=== PATIENT | male | born 1950 | race Caucasian/White ===

== ENCOUNTER 2016-12-11 18:30 | Inpatient (IN) | payer MEDICARE ==
[~2016-12-11] VITALS: Ht 182.9 cm; Wt 136.1 kg
[2016-12-11] MEDS ORDERED: GLUCOPHAGE500 MG PO (18:48)
--- NOTE | 2016-12-11 22:17 | NUR ---
12/11/16 1902 Dawna Smith 2203 PATIENT ARRIVES TO PACU AWAKE, RESP EVEN AND UNLABORED, AUDIBLE WHEEZING, IMPROVES WITH COUGH, ON ROOM AIR.
--- NOTE | 2016-12-11 22:50 | NUR ---
66YR OLD MAN ADMITTED TO ROOM 115 FROM RECOVERY. PT IS ALREADY ON BED. ALERT, ORIENTED, IN GOOD SPIRITS. DENIES ANY PAIN OR FEELING WAIST DOWN YET. L LEG ELEVATED ON PILLOW WITH ICE. TOES ARE PINK AND WARM TO TOUCH. DRSG IS CDI TO L LOWER LEG. CARR CATH PATENT/SECURE WITH LIGHT YELLOW URINE. IVF PATENT. ORIENTED TO ROOM AND CALL LIGHT. DENEIS FURTHER NEEDS.
--- NOTE | 2016-12-12 00:36 | NUR ---
IN TO CHECK ON PT, VITALS OBTAINED. PT DENIES PAIN AND NAUSEA. DRSG C/D/I. PULSE OX IN PLACE. SCD AND TEDS IN PLACE. NO FURTHER NEEDS NOTED. WATER AT BEDSIDE. CALL LIGHT WITH IN REACH.
--- NOTE | 2016-12-12 01:41 | NUR ---
IN TO CHECK ON PT, PT AWAKE WATCHING TV. DENIES PAIN OR NAUSEA. FRESH WATER GIVEN. PT STATES HE IS ABLE TO SLEEP FOR A FEW MINUTES AT A TIME THEN WAKES. VITALS OBTAINED. BYRON C/D/I. PULSE OX, O2 AND CARR IN PLACE. CALL LIGHT WITH IN REACH.
--- NOTE | 2016-12-12 01:57 | NUR ---
PT CALLED STATING HIS "RIGHT FOOT FEELS LIKE IT IS ASLEEP." IN TO ASSESS PT. CMS INTACT. DISCUSSED SYMPTOMS OF SENSATION RETURNING AFTER SPINAL. PT ASKED ABOUT ITCHING. STATES HIS ITCHING IS MINIMAL AND HAS ACTUALLY IMPROVED SINCE COMING TO THE FLOOR. OFFERED MEDICATION FOR ITCHING, PT DECLINED. ADVISED TO CALL IF ITCHING INCREASES. PT UNDERSTANDS. CALL LIGHT WITH IN REACH.
--- NOTE | 2016-12-12 04:37 | NUR ---
PT ADMITTED TO FLOOR AT 2250 AFTER ORIF OF THE L ANKLE. PT HAS BEEN AWAKE FOR MOST OF THE SHIFT. AAO X3, PLEASANT. SPINAL ANESTHESIA ADMINISTERED IN OR. DENIES PAIN OR NAUSEA. DRSG C/D/I. CMS INTACT. PT TOLERATING FLUIDS AND JELLO. CARR IN PLACE.
--- NOTE | 2016-12-12 08:22 | NUR ---
PT SITTING UP IN BED. FAMILY VISITING AT BEDSIDE. LEASE PURCHASE DRIVER OBTAINED FSBS. GLUCOSE 228. NO SLIDING SCALE ORDERED YET. HOSPITALIST CONSULT ORDERED. WILL GIVE SLIDING SCALE INSULIN WHEN ORDERED.
--- NOTE | 2016-12-12 09:28 | NUR ---
SALINE LOCKED PATIENT. PAIN 05/04. ATE 100% BREAKFAST.
--- NOTE | 2016-12-12 13:05 | EKG ---
[facility] [address] [place] [address] Signed Normal sinus rhythm Right bundle branch block Abnormal ECG No previous ECGs available Confirmed by MACARENA STOVER MD ([id number]) on 12/12/2016 1:05:31 PM Electronically Signed By: MACARENA STOVER MD 12/12/16 1305 PATIENT NAME: DURAN MAURO Electrocardiogram DATE OF : 48 PHYSICIAN: MACARENA STOVER MD REPORT #: [id number] REPORT IS CONFIDENTIAL AND NOT TO BE RELEASED WITHOUT AUTHORIZATION
--- NOTE | 2016-12-12 17:53 | NUR ---
worked with PT TODAY. SBA WITH FWW. USES URINAL. ROOM AIR. DOMINGUEZ DRESSING INTACT. CMS GOOD. ADA DIET. NO COVERAGE GIVEN FOR SLIDING SCALE D/T METFORMIN BID. MAY NEED TO REINFORCE CALLING WHEN HE NEEDS THE RESTROOM.
--- NOTE | 2016-12-12 19:20 | NUR ---
REPORT RECV'D, PT SLEEPING. AWAKENS EASILY TO VOICE. DENIES PAIN AT THIS TIME. DRSG DRY AND INTACT. DIME SIZED SPOT OF BLOOD NOTED ON THE HEEL OF THE L FOOT. DRSG REINFORCED. PT USING URINAL AT BEDSIDE. NO FURTHER NEEDS AT THIS TIME. CALL LIGHT WITH IN REACH.
--- NOTE | 2016-12-12 20:50 | NUR ---
IN TO CHECK ON PT. PT C/O OF GAS PAIN AND NAUSEA. PT WRETCHING. PRN ZOFRAN GIVEN. VITALS OBTAINED. PT ASSESSED. DRSG REINFORCED WITH ABD PAD AND COBAND. PT REPOSITION TO SIDE FOR COMEFORT. STATES HE STOMACH IS FEELING BETTER AFTER MEDICATION. RATES PAIN A 1-2/10. URINAL AT BEDSIDE. STRESSED TO PT TO CALL WHEN NEEDING TO STAND TO USE THE URINAL, PT STATES HE UNDERSTANDS. SCD AND TEDS IN PLACE. NO FURTHER NEEDS AT THIS TIME. CALL LIGHT WITH IN REACH.
--- NOTE | 2016-12-12 22:30 | NUR ---
IN TO CHECK ON PT, PT SLEEPING. PT STATES THAT HE IS FEELING BETTER, DENIES NAUSEA. STATES " I HAVE BEEN ABLE TO GET RID OF SOME OF THAT GAS." URINAL EMPTIED. NO FURTHER NEEDS AT THIS TIME. SCD AND TEDS IN PLACE. CALL LIGHT WITH IN REACH.
--- NOTE | 2016-12-13 00:39 | NUR ---
IN TO CHECK ON PT, LIGHTS AND TV ON. PT SLEEPING. NO APPARENT DISTRESS NOTED. SCDS AND TEDS IN PLACE. CALL LIGHT WITH IN REACH.
--- NOTE | 2016-12-13 02:44 | NUR ---
IN TO CHECK ON PT, PT APPEARS TO BE SLEEPING. RR EVEN AND UNLABORED. PULSE OX IN PLACE. URINAL AT BEDSIDE. CALL LIGHT WITH IN REACH.
--- NOTE | 2016-12-13 03:45 | NUR ---
PT CALLED, UP TO BATHROOM. 2 PERSON STANDBY ASSIST WITH FWW. TOLERATED WELL. BM NOTED. PT ASSISTED BACK TO BED. RATES PAIN A 08/02. PRN MEDICATION GIVEN. SCD AND TEDS IN PLACE. DRSG C/D/I. FRESH WATER GIVEN. CALL LIGHT WITH IN REACH.
--- NOTE | 2016-12-13 04:21 | NUR ---
PT HAS RESTED WELL THROUGH OUT THE SHIFT. C/O OF GAS PAIN AND NAUSEA AT BEGINNING OF SHIFT. ZOFAN GIVE. NAUSEA RESOLVED. PASSING GAS AND UP TO BATHROOM, BM NOTED. NORCO GIVEN X1 FOR 4/10 PAIN. DRSG REINFORCED DUE TO DIME SIZED AREA OF DRAINAGE. SHADOWING ALSO NOTED IN THE SAME AREA. SCDS AND TEDS IN PLACE. PT AAO X3 AND PLEASANT.
--- NOTE | 2016-12-13 07:43 | NUR ---
report received from Kishore SPEARS at bedside. pt awake sitting up in bed. pt up to bathroom now. having flatulence. son at bedside. Charley GUZMÁN setting up chair for patient to sit in for breakfast. Pain well controlled now.
--- NOTE | 2016-12-13 07:45 | NUR ---
PATIENT UP TO BATHROOM. BED BATH AND ORAL CARE DONE BY PATIENT. LINENS CHANGED.
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
--- NOTE | 2016-12-13 10:37 | NUR ---
PATIENT UP IN BED ASKED FOR PAIN MEDS. CALL BUTTON IN REACH. FRESH ICE WATER GIVEN.
--- NOTE | 2016-12-13 10:47 | NUR ---
nitro patch applied to right chest. pt and anxiety elevated. called to see if esophagram could be expedited. unable to get pt in to exam sooner.
[2016-12-13] MEDS ORDERED: VENTOLIN HFA18 GM INH (10:59)
[2016-12-13] MEDS ORDERED: GLIPIZIDE5 MG PO (11:00)
[2016-12-13] MEDS ORDERED: LOSARTAN POTAS100 MG PO (11:01)
[2016-12-13] MEDS ORDERED: AMLODIPINE BESY10 MG PO (11:01)
[2016-12-13] MEDS ORDERED: ATORVASTATIN CA80 MG PO (11:02)
[2016-12-13] MEDS ORDERED: METOPROLOL TART50 MG PO (11:03)
[2016-12-13] MEDS ORDERED: METFORMIN HCL1000 MG PO (11:04)
[2016-12-13] MEDS ORDERED: ALEVE220 MG PO (11:06)
--- NOTE | 2016-12-13 17:16 | NUR ---
ODETTE X2 TODAY. SRAVANI X1. WORKED WITH PT X2. TOLERATED WELL. EATING WELL. ACCU CHECKS DISCONTINUED. METFORMIN BID. CALLS APPROPRIATELY. HOME TUESDAY.
--- NOTE | 2016-12-13 18:27 | NUR ---
PATIENT SITTING UP IN BED. STATES HIS LAST PAIN MEDS ONLY MADE HIM LIGHT HEADED BUT HIS PAIN IS AT A 6. FRESH ICE WATER GIVEN. ICE PACKS ON LEFT ANKLE. NO OTHER NEEDS AT THIS TIME. CALL BUTTON IN REACH.
--- NOTE | 2016-12-13 21:00 | NUR ---
PT IS IN GOOD SPIRITS WATCHING TV, L FOOT ELEVATED ON PILLOW WITH ICE PACKS, REPORTED GOOD CMS TO TOES. DRSG IS CDI. RATES PAIN 2/10. STATES HE IS COMFORTABLE. CALL LIGHT IN EASY REACH.
--- NOTE | 2016-12-14 01:10 | NUR ---
PT AWAKE, AMB W FWW TO BATHROOM TO VOID, DOING VERY WELL WITH TTWB TO L LEG. REQUESTED PAIN MEDICATION AT THIS TIME FOR L LEG ACHING, OXYCODONE GIVEN, ASSISTED WITH REPOSITIONING FOR COMFORT, ELEVATED WITH ICE TO ANKLE. CALL LIGHT IN EASY REACH.
--- NOTE | 2016-12-14 03:57 | NUR ---
PT IS ASLEEP, RESP EVEN AND UNLABORED. CALL LIGHT IN EASY REACH.
--- NOTE | 2016-12-14 07:32 | NUR ---
Bedside report received from Batsheva SPEARS. Pt sleeping in bed. shift production associate reported 4 BMs overnight. Desitin used for excoriated periarea. Will work with patient on standing at bedside, encouraging better appetite, and give Ensure supplements between meals.
--- NOTE | 2016-12-14 11:29 | NUR ---
PATIENT UP TO SHOWER SITTING ON SHOWER CHAIR. PATIENT KNOWS TO PULL CORD TO CALL FOR HELP WHEN STANDING UP. LINENS CHANGED. SHAVE DONE BY PATIENT. FRESH ICE WATER GIVEN. ICE PACKS GIVEN. ORAL CARE DONE. NO OTHER NEEDS AT THIS TIME.
--- NOTE | 2016-12-14 14:28 | NUR ---
PATIENT SITTING UP IN BED WITH LEFT LEG ELEVATED. FAMILY IN ROOM. FRESH ICE WATER GIVEN. CALL BUTTON IN REACH. NO OTHER NEEDS AT THIS TIME.
--- NOTE | 2016-12-14 14:50 | NUR ---
PT HAS BOOT ON LEFT ANKLE. REPORTS UNCOMFORTABLE BECAUSE OF BEING STATIONARY. ELEVATED ON PILLOWS. GETTING TO BATHROOM INDEPENDENTLY WITH FWW. SON AT BEDSIDE.
--- NOTE | 2016-12-14 17:58 | NUR ---
HOME TOMORROW. INDEPENDENT WITH FWW TO BATHROOM. ADA DIET BUT NO ACCU CHECKS. LEFT ANKLE WRAPPED WITH DAVIS WRAP. BOOT IN PLACE. NORCO X1 OXYCODONE X2. LAC S/L. CK CONSULT.
--- NOTE | 2016-12-14 19:56 | NUR ---
PT IS RESTING ON BED WATCHING TV PROGRAM, LLE ELEVATED ON PILLOWS, IN GOOD SPIRITS, STATES HE IS READY TO GO HOME [place]. REPORTS GOOD PAIN RELIEF AFTER NORCO. CALL LIGHT IN EASY REACH. DENIES ANY NEEDS.
--- NOTE | 2016-12-15 00:11 | NUR ---
RESTING QUIETLY ON BED, RESP EVEN AND UNLABORED. NO COMPLAINTS, CALL LIGHT IN EASY REACH.
--- NOTE | 2016-12-15 02:04 | NUR ---
RESTING WELL TONIGHT. CALL LIGHT IN EASY REACH.
--- NOTE | 2016-12-15 06:29 | NUR ---
SLEPT WELL LAST NIGHT WITH GOOD PAIN CONTROL, AWAKE EARLY THIS MORNING FOR COFFEE, C/O PAIN IN L GREAT TOE, GOOD CMS IN FOOT, ELEVATED. SL DC INTACT FROM Lynne AC. NORCO GIVEN. WATCHING TV.
--- NOTE | 2016-12-15 07:50 | NUR ---
patient sitting up in bed. face and hands washed. oral care done. refused shower due to possible discharge today. leg elevated. fresh ice water given. call button in reach. no other needs at this time.
--- NOTE | 2016-12-15 08:15 | NUR ---
PT AWAKE IN BED, ATE ALL OF BREAKFAST LEIGHANN WELL. SON AT BEDSIDE. DISCUSSED PLAN OF CARE AND DC. DENIES PAIN AT THIS TIME. DRESSING CDI, BOOT IN PLACE. ALERT AND ORIENTED. CALL LIGHT WITHIN REACH.
--- NOTE | 2016-12-15 09:25 | NUR ---
FAXED CHART NOTES TO [facility] TO GET A FRONT WHEELED WALKER FOR PT. TALKED WITH EMPLOYEE THERE REGARDING THE NEED FOR IT TO BE DELIVERED THIS AM PT IS DC. THEY SAID THEY COULD DELIVER THIS AM.
--- NOTE | 2016-12-15 11:50 | NUR ---
PT UP AT EDGE OF BED EATING LUNCH. JUST AWAITING DC. DENIES PAIN OR OTHER CONCERNS. SON AT BEDSIDE. CALL LIGHT WITHIN REACH.
[2016-12-15] MEDS ORDERED: OXYCODONE HCL5 MG PO (12:13)
[2016-12-15] MEDS ORDERED: HYDROCODON-ACE1 EA11 PO (12:13)
--- NOTE | 2016-12-15 14:11 | NUR ---
WALKER WAS DELIVERED AND WENT HOME WITH PT.
--- NOTE | 2016-12-15 15:52 | DS ---
[facility] [address] [place], [place] [address] Signed DATE OF DISCHARGE: 12/15/16 ADMISSION DIAGNOSIS Grade 2 open fracture dislocation, left ankle. POSTOPERATIVE DIAGNOSIS Grade 2 open fracture dislocation, left ankle. PROCEDURE PERFORMED Open reduction, internal fixation. He tolerated this well. BRIEF HISTORY He was taken to the recovery room and subsequently to Orthopedic floor. He was placed on IV antibiotics for 72 hours for an open fracture protocol. He did well with pain control ultimately ending up on Oxycodone 7.5 mg q.4 and [place] 7.5 mg 1- 2 every 4 hours p.r.n. DVT prophylaxis provided using SCDs, KINGS's, and Xarelto. He will be discharged to home with the above medications. He will follow up with his orthopedist next week at home in [facility]. Should he have any problems, he is always welcome to contact me. Cate Eckert MD BA/Diandral /[id number] Electronically Signed By: CATE ECKERT MD 12/15/16 1552 PATIENT NAME: DURAN MAURO DISCHARGE SUMMARY DATE OF : 48 PHYSICIAN: CATE ECKERT MD REPORT #: [id number] REPORT IS CONFIDENTIAL AND NOT TO BE RELEASED WITHOUT AUTHORIZATION
== END 2016-12-15 12:30 | disposition home or self-care (01) | DRG 494 ==
LOC: ED 18:30 → MS 19:35
PROVIDERS: ADMIT Specialist
PROC: 3E0T3CZ (ICD-10-PCS; 2016-12-11)
PROC: 0QSK04Z Reposition Left Fibula with Internal Fixation Device, Open Approach (ICD-10-PCS; principal; 2016-12-11 20:14)
PROC: 0QSH04Z Reposition Left Tibia with Internal Fixation Device, Open Approach (ICD-10-PCS; 2016-12-11 20:14)
DX: S82.62XB Displaced fracture of lateral malleolus of left fibula, initial encounter for open fracture type I or II (principal); V29.88XA Motorcycle rider (driver) (passenger) injured in other specified transport accidents, initial encounter; Y92.481 Parking lot as the place of occurrence of the external cause; I10 Essential (primary) hypertension; E11.9 Type 2 diabetes mellitus without complications; I25.10 Atherosclerotic heart disease of native coronary artery without angina pectoris; E78.5 Hyperlipidemia, unspecified; F10.10 Alcohol abuse, uncomplicated; F17.210 Nicotine dependence, cigarettes, uncomplicated; Z95.5 Presence of coronary angioplasty implant and graft; Z79.84 Long term (current) use of oral hypoglycemic drugs
CPT/HCPCS: 01480; 36415; 51702; 64445; 73600; 76942; 80053; 81001; 85025; 85610; 90471; 90715; 93005; 93010; 94640; 94760; 94762; 96374; 96375; 97110; 97116; 97162; 99285; 99406; C1713; J0690; J1100; J1170; J1885; J2250; J2274; J2370; J2405; J2704; J2795; J3010; L4386